=== PATIENT | male | born 1980 | race Caucasian/White ===

== ENCOUNTER 2017-08-27 21:27 | Emergency (ER) | payer OTHER ==
[~2017-08-27] VITALS: Ht 175.3 cm; Wt 70.9 kg
[~2017-08-27 21:27] MED LIST: BUPR8MIS PO
[2017-08-27 21:32] VITALS: Ht 175.3 cm; Wt 70.9 kg
[2017-08-27] MEDS ORDERED: PENICILLIN (21:53)
[2017-08-27] MEDS ORDERED: SODIUM CHLORIDE 0.9% 1000ML 1,000 ML IV STA (22:16)
--- NOTE | 2017-08-27 22:33 | DIAGNOSTIC IMAGING REPORT ---
CHEST ONE VIEW PORTABLE CLINICAL HISTORY: Chest pain. COMPARISON STUDY: Chest radiograph March 17, 2014. FINDINGS: Lung volumes are normal. Lungs are clear. No pneumothorax or pleural effusion is present. Pulmonary vascularity is normal. Cardiomediastinal silhouette is normal. IMPRESSION: No acute cardiopulmonary findings. Electronically signed by: Antonio Tang M.D. 08/27/2017 10:32 PM Dictated Date/Time: 08/27/2017 10:31 PM
[2017-08-27 22:58] LABS: URINE APPEARANCE CLEAR (CLEAR); URINE BILIRUBIN NEG (NEG); URINE COLOR YELLOW; URINE NITRITE NEG (NEG); URINE PH 7.5 (4.5-7.5); UROBILINOGEN NEG (NEG)
[2017-08-27 22:59] LABS: MANUAL MICROSCOPIC REQUIRED? NO; REVIEW REQ? NO
--- NOTE | 2017-08-27 23:18 | EMERGENCY ROOM VISIT NOTE ---
History Report prepared by Xavier: Lucio Shultz Under the Supervision of: Dr. Low Simental D.O. First contact with patient: 22:12 Chief Complaint: CARDIAC ASSESSMENT Stated Complaint: DULL PAIN CENTER CHEST,SHARP PAIN L SIDE History of Present Illness The patient is a 37 year old male who presents to the Emergency Room with complaints of worsening central and left sided chest pain for the past three days, and he states that the left sided pain got significantly worse today. The patient additionally states that he is short of breath and has a cough, though he states that this is from smoking. The patient states that the pain is not worse with breathing. He denies any nausea, vomiting, abdominal pain, back pain , leg swelling or leg pain, and any recent long travels. The patient states that he takes Subutex, and he states that he has never had a heart attack before. Source of History: patient Onset: three days ago Position: chest (left and central) Timing: worsening Associated Symptoms: + cough, + SOB, No nausea, No vomiting, No abdominal pain, No back pain Review of Systems See HPI for pertinent positives & negatives. A total of 10 systems reviewed and were otherwise negative. Past Medical & Surgical Medical Problems: (1) Cholecystitis (2) Cholelithiasis Social History Smoking Status: Current Every Day Smoker Alcohol Use: none Marital Status: single Housing Status: lives with family Occupation Status: employed Current/Historical Medications Scheduled Buprenorphine Hcl-Naloxone Hcl (Suboxone 8-2 Mg), 8 MG PO DAILY [Penicillin], Unknown Dose QID Scheduled PRN Buprenorphine Hcl-Naloxone Hcl (Suboxone 8-2 Mg), 4 MG PO Q6 PRN for Pain Allergies Coded Allergies: No Known Allergies (Unverified , 08/27/17) Physical Exam Vital Signs Date Time Temp Pulse Resp B/P (MAP) Pulse Ox O2 Delivery O2 Flow Rate FiO2 08/28/17 01:15 36.5 68 20 124/78 99 08/28/17 00:20 36.6 67 20 134/87 99 Room Air 08/27/17 22:22 100 08/27/17 22:02 Room Air 08/27/17 21:32 36.6 90 20 122/70 99 Room Air Physical Exam GENERAL: Patient is awake, alert, mildly anxious appearing but overall comfortable. EYES: The conjunctivae are clear. The pupils are round and reactive. EARS, NOSE, MOUTH AND THROAT: The nose is without any evidence of any deformity. Mucous membranes are moist tongue is midline NECK: The neck is nontender and supple. RESPIRATORY: Normal respiratory effort is noted there is no evidence of wheezing rhonchi or rales CARDIOVASCULAR: Tachycardic but regular. No definite murmur noted GASTROINTESTINAL: The abdomen is soft. Bowel sounds are present in all quadrants. Abdomen is nontender MUSCULOSKELETAL/EXTREMITIES: There is no evidence of gross deformity full range of motion is noted in the hips and shoulders SKIN: No edema or calf tenderness noted. There is no obvious evidence of any rash. There are no petechiae, pallor or cyanosis noted. NEUROLOGIC: Patient is awake alert and oriented x3 Medical Decision & Procedures ER Provider Diagnostic Interpretation: Radiology results as stated below per my review and radiologist interpretation: CHEST ONE VIEW PORTABLE CLINICAL HISTORY: Chest pain. COMPARISON STUDY: Chest radiograph March 17, 2014. FINDINGS: Lung volumes are normal. Lungs are clear. No pneumothorax or pleural effusion is present. Pulmonary vascularity is normal. Cardiomediastinal silhouette is normal. IMPRESSION: No acute cardiopulmonary findings. Electronically signed by: Antonio Tang M.D. 08/27/2017 10:32 PM Laboratory Results 08/27/17 23:43 Red Blood Count 4.70, Mean Corpuscular Volume 82.8, Mean Corpuscular Hemoglobin 28.9, Mean Corpuscular Hemoglobin Concent 35.0, Mean Platelet Volume , Neutrophils (%) (Auto) 55.3, Lymphocytes (%) (Auto) 36.1, Monocytes (%) (Auto) 6.3, Eosinophils (%) (Auto) 1.5, Basophils (%) (Auto) 0.4, Neutrophils # (Auto) 4.29, Lymphocytes # (Auto) 2.80, Monocytes # (Auto) 0.49, Eosinophils # (Auto) 0.12, Basophils # (Auto) 0.03 08/27/17 23:43 Test 08/27/17 00:00 08/27/17 23:43 08/27/17 23:47 Urine Color YELLOW Urine Appearance CLEAR (CLEAR) Urine pH 7.5 (4.5-7.5) Urine Specific [place] 1.010 (1.000-1.030) Urine Protein NEG (NEG) Urine Glucose (UA) NEG (NEG) Urine Ketones NEG (NEG) Urine Occult Blood NEG (NEG) Urine Nitrite NEG (NEG) Urine Bilirubin NEG (NEG) Urine Urobilinogen NEG (NEG) Urine Leukocyte Esterase NEG (NEG) White Blood Count 7.76 K/uL (4.8-10.8) Red Blood Count 4.70 M/uL (4.7-6.1) Hemoglobin 13.6 g/dL (14.0-18.0) Hematocrit 38.9 % (42-52) Mean Corpuscular Volume 82.8 fL (80-100) Mean Corpuscular Hemoglobin 28.9 pg (25-34) Mean Corpuscular Hemoglobin Concent 35.0 g/dl (32-36) Platelet Count K/uL (130-400) Mean Platelet Volume fL (7.4-10.4) Neutrophils (%) (Auto) 55.3 % Lymphocytes (%) (Auto) 36.1 % Monocytes (%) (Auto) 6.3 % Eosinophils (%) (Auto) 1.5 % Basophils (%) (Auto) 0.4 % Neutrophils # (Auto) 4.29 K/uL (1.4-6.5) Lymphocytes # (Auto) 2.80 K/uL (1.2-3.4) Monocytes # (Auto) 0.49 K/uL (0.11-0.59) Eosinophils # (Auto) 0.12 K/uL (0-0.5) Basophils # (Auto) 0.03 K/uL (0-0.2) RDW Standard Deviation 42.3 fL (36.4-46.3) RDW Coefficient of Variation 13.9 % (11.5-14.5) Immature Granulocyte % (Auto) 0.4 % Immature Granulocyte # (Auto) 0.03 K/uL (0.00-0.02) Platelet Estimate NORMAL Prothrombin Time 10.7 SECONDS (9.0-12.0) Prothromb Time International Ratio 1.0 (0.9-1.1) Activated Partial Thromboplast Time 22.0 SECONDS (21.0-31.0) Partial Thromboplastin Ratio 0.8 Anion Gap 7.0 mmol/L (3-11) Est Creatinine Clear Calc Drug Dose 116.3 ml/min Estimated GFR () 127.8 Estimated GFR (Non- 110.3 BUN/Creatinine Ratio 10.8 (10-20) Calcium Level 8.8 mg/dl (8.5-10.1) Total Bilirubin 0.2 mg/dl (0.2-1) Direct Bilirubin < 0.1 mg/dl (0-0.2) Aspartate Amino Transf (AST/SGOT) 32 U/L (15-37) Alanine Aminotransferase (ALT/SGPT) 55 U/L (12-78) Alkaline Phosphatase 89 U/L (45-117) Total Creatine Kinase 93 U/L (39-308) Creatine Kinase MB 0.7 ng/ml (0.5-3.6) Creatine Kinase MB Ratio 0.8 (0-3.0) Troponin I < 0.015 ng/ml (0-0.045) Total Protein 7.7 gm/dl (6.4-8.2) Albumin 3.9 gm/dl (3.4-5.0) Lipase 138 U/L (73-393) Bedside D-Dimer 393 ng/mlFEU (0-450) Laboratory results per my review. Medications Administered Medications (Trade) Dose Ordered Sig/[place] Route Start Time Stop Time Status Last Admin Dose Admin Sodium Chloride 1,000 ml @ 999 mls/hr Q1H1M STAT IV 08/27/17 22:16 08/27/17 23:16 DC 08/27/17 22:16 999 MLS/HR ECG Indication: chest pain Rate (beats per minute): 90 Rhythm: normal sinus Findings: T-wave inversion (Inferior), no ectopy, other (No acute ST segment abnormality) Comparison ECG Date: 03/17/14 Change: T-wave inversions are new ED Course 2212: The patient was evaluated in room C7. A complete history and physical examination were performed. 2216: NSS 1,000 ml @ 999 mls/hr IV 0102: Upon reevaluation, the patient is doing well. I discussed the results and treatment plan with him. He verbalized agreement of the treatment plan. He was discharged home. Medical Decision Differential diagnosis: Etiologies such as cardiac ischemia, aortic dissection, pulmonary embolism, pneumonia, pneumothorax, musculoskeletal, infections, pericarditis, myocarditis , esophageal rupture, gastrointestinal, as well as others were entertained. Nursing notes reviewed. The patient is a 37-year-old male who presented to the emergency department for an evaluation of chest pain. The patient appeared to have reproducible pleuritic chest pain. The patient's EKG did not show any ischemic changes. He has had ongoing symptoms for the last 24 hours and his cardiac biomarkers were negative. The patient's d-dimer was negative to. I discussed patient's laboratory and radiographic studies with him. He was treated with IV fluids in the emergency department. Initially he was tachycardic however his pulse responded well to IV fluids on my reevaluation. The patient was encouraged to rest and avoid any strenuous activity. He was also encouraged to call his family doctor in the morning to schedule follow-up appointment for further studies but return to the emergency department immediately if symptoms change worsen or the need arises. I discussed the limitations of the emergency department workup for chest pain with him. Medication Reconcilliation Current Medication List: was personally reviewed by me Blood Pressure Screening Patient's blood pressure: Normal blood pressure Impression Primary Impression: Pleuritic chest pain Scribe Attestation The scribe's documentation has been prepared under my direction and personally reviewed by me in its entirety. I confirm that the note above accurately reflects all work, treatment, procedures, and medical decision making performed by me. Departure Information Dispostion Home / Self-Care Referrals No Doctor, Assigned (PCP) Forms IMPORTANT VISIT INFORMATION, Work Instructions Patient Instructions ED Chest Pain Atypical Unkn Cause, My [facility] Additional Instructions Continue all medications as prescribed. Rest and avoid any strenuous activity. Continue using Motrin and Tylenol as directed for pain. Follow-up with your family doctor soon as possible. I would recommend further studies such as a stress test if symptoms do not improve. Return to the emergency department immediately if symptoms change worsen or the need arises.
[2017-08-28 00:04] LABS: PARTIAL THROMBOPLASTIN RATIO 0.8; PROTHROMBIN TIME (PATIENT) 10.7 SECONDS (9.0-12.0)
[2017-08-28 00:08] LABS: ALT/SGPT 55 U/L (12-78); AST/SGOT 32 U/L (15-37); BLOOD UREA NITROGEN 9 mg/dl (7-18); BUN/CREATININE RATIO 10.8 (10-20); CALCIUM 8.8 mg/dl (8.5-10.1); CARBON DIOXIDE 27 mmol/L (21-32); CHLORIDE 108 mmol/L (98-107); CREATININE 0.87 mg/dl (0.60-1.40); GLUCOSE 92 mg/dl (70-99); POTASSIUM 4.3 mmol/L (3.5-5.1); SODIUM 142 mmol/L (136-145)
[2017-08-28 00:14] LABS: ALKALINE PHOSPHATASE 89 U/L (45-117); CKMB/CK RATIO 0.8 (0-3.0)
[2017-08-28 01:02] LABS: HEMATOCRIT 38.9 % (42-52); MEAN CELL VOLUME 82.8 fL (80-100); MEAN CORPUSCULAR HEMOGLOBIN 28.9 pg (25-34); WHITE BLOOD COUNT 7.76 K/uL (4.8-10.8)
[2017-08-28 01:03] LABS: BASO % 0.4 %; BASO ABS # 0.03 K/uL (0-0.2); COMPLETE YES; EOS % 1.5 %; IG% 0.4 %; LYMPH % 36.1 %; MONO % 6.3 %; NEUT % 55.3 %; PLT ESTIMATE NORMAL
[2017-08-28 01:15] VITALS: BP 124/78; PULSE 68; TEMP 36.5; O2SAT 99
== END 2017-08-28 01:16 | disposition home or self-care (01) ==
LOC: C.EDB 21:28 → C.EDC 08-28 01:16
DX: R07.81 Pleurodynia (principal); F17.200 Nicotine dependence, unspecified, uncomplicated; Z87.19 Personal history of other diseases of the digestive system